=== PATIENT | female | born 1945 | race Caucasian/White ===

== ENCOUNTER 2017-04-10 09:09 | Emergency (ER) | payer MEDICARE, OTHER ==
[2017-04-10 09:59] LABS: BASOPHIL 0.4 % (0-2); EOSINOPHIL 0.2 % (0-7); HCT 39.3 % (37.0-47.0); HGB 13.6 g/dl (12.5-16.0); LYMPHOCYTE 10.3 % (15-48); MCH 31.2 pg (25.0-31.0); MCHC 34.6 g/dL (32.0-36.0); MCV 90.1 fL (78.0-100.0); MONOCYTE 7.4 % (0-12); MPV 9.7 fL (6.0-9.5); NEUTROPHIL 81.7 % (41-80); PLT 230 K/uL (150-400); RBC 4.36 M/uL (4.20-5.40); RDW 13.7 % (11.5-14.0); WBC 9.9 K/uL (4.0-10.5)
[2017-04-10 10:09] LABS: INR 1.04 (0.9-1.2); PROTHROMBIN TIME 13.2 SECONDS (11.7-14.0)
[2017-04-10 10:10] LABS: PTT 25.5 SECONDS (23.2-31.4)
[2017-04-10 10:33] LABS: CKMB 3.09 ng/mL (0.97-4.94); MYOGLOBIN 39 ng/mL (26-65); PRO-BNP 61 pg/mL (0-125); TROPONIN T < 0.010 ng/mL
[2017-04-10 10:38] LABS: ALBUMIN 4.1 g/dL (3.4-4.8); BILIRUBIN - TOTAL 0.5 mg/dL (0.1-1.0); CREATININE 0.7 mg/dL (0.5-1.0); GLOBULIN (CALCULATION) 3.6 g/dL (2.2-4.2); MAGNESIUM 1.95 mg/dL (1.40-2.10); POTASSIUM 3.9 mmol/L (3.5-5.1); TOTAL PROTEIN 7.7 g/dL (6.4-8.3)
== END 2017-04-10 11:22 | disposition home or self-care (01) ==
LOC: FER 09:09
PROVIDERS: Internal Medicine
DX: F41.9 Anxiety disorder, unspecified (principal); I49.1 Atrial premature depolarization; K21.9 Gastro-esophageal reflux disease without esophagitis; E78.5 Hyperlipidemia, unspecified; Z79.82 Long term (current) use of aspirin; Z79.899 Other long term (current) drug therapy
CPT/HCPCS: 36415; 71010; 80053; 82550; 82553; 83735; 83874; 83880; 84484; 85025; 85610; 85730; 93005; J2060

== ENCOUNTER 2021-10-17 12:43 | Emergency (ER) | payer MEDICARE, OTHER ==
[~2021-10-17 12:43] MED LIST: ALLEGRA ALLERG180 MG PO; ASPIRIN EC81 MG PO; ASPIRIN81 MG PO; CALTRATE 600 +1 EAC1 PO; LIPITOR40 M1 PO; METAMUCIL1 DOSE PO; MIRALAX17 G1 PO; MUCINEX 600MG600 MG PO; PROTONIX 40MG T40 MG PO; STOOL SOFTENER100 MG PO; TYLENOL325 M1 PO; XANAX0.25 MG PO
[2021-10-17 14:57] LABS: BASOPHIL 1.1 % (0-2); EOSINOPHIL 4.9 % (0-7); HCT 37.7 % (37.0-47.0); HGB 12.6 g/dl (12.5-16.0); MCH 31.7 pg (25.0-31.0); MCHC 33.4 g/dL (32.0-36.0); MONOCYTE 11.4 % (0-12); MPV 10.1 fL (6.0-9.5); NEUTROPHIL 66.3 % (41-80); NRBC 0; PLT 222 K/uL (150-400); RBC 3.97 M/uL (4.20-5.40); WBC 7.4 K/uL (4.0-10.5)
[2021-10-17 15:10] LABS: BACTERIA 1+; BILIRUBIN NEGATIVE (NEGATIVE); BLOOD 2+ Ery/uL (NEGATIVE); CLARITY CLEAR (CLEAR); COLOR YELLOW (YELLOW); GLUCOSE (U) NORMAL (NORMAL); LEUKOCYTES TRACE Leu/uL (NEGATIVE); NITRITE NEGATIVE (NEGATIVE); PROTEIN NEGATIVE (NEGATIVE); UROBILINOGEN 0.2 mg/dL (0.2-1.0)
[2021-10-17 15:23] LABS: ALBUMIN 3.8 g/dL (3.4-5.0); BILIRUBIN - TOTAL 0.4 mg/dL (0.2-1.0); BUN/CREAT RATIO (CALC) 18.3 RATIO; CREATININE 0.71 mg/dL (0.51-0.95); GLOBULIN (CALCULATION) 4.4 g/dL; TOTAL PROTEIN 8.2 g/dL (6.4-8.2)
== END 2021-10-17 17:54 | disposition home or self-care (01) ==
LOC: FER 12:43
PROVIDERS: Emergency Medicine
DX: K59.00 Constipation, unspecified (principal); Z86.73 Personal history of transient ischemic attack (TIA), and cerebral infarction without residual deficits; Z88.2 Allergy status to sulfonamides; Z88.1 Allergy status to other antibiotic agents; Z88.5 Allergy status to narcotic agent
CPT/HCPCS: 36415; 80053; 81001; 83690; 85025; 87088